=== PATIENT | male | born 1975 | race American Indian/Alaskan Native ===

== ENCOUNTER 2016-11-06 21:35 | Emergency (ER) | payer SELFPAY ==
--- NOTE | 2016-11-06 21:56 | C.PDOC ---
History Of Present Illness Patient is brought to the ED by ambulance complaining of about 2 episodes of vomiting prior to arrival. Patient notes he has been drinking alcohol and smoking marijuana today. Patient denies suicidal or homicidal ideation. Time Seen by Provider: 11/06/16 21:56 Chief Complaint (Nursing): Substance Abuse History Per: Patient History/Exam Limitations: intoxication Onset/Duration Of Symptoms: Hrs (prior to arrival) Current Symptoms Are (Timing): Still Present Suicide/Self Injury Attempted (Context): None Modifying Factor(s): Alcohol Severity: None Pain Scale Rating Of: 0 Recent travel outside of the [place]: No Additional History Per: EMS Past Medical History Reviewed: Historical Data, Nursing Documentation, Vital Signs Vital Signs: Last Vital Signs Temp 98.7 F 11/06/16 21:50 Pulse 110 H 11/06/16 21:50 Resp 20 11/06/16 21:50 BP 165/91 H 11/06/16 21:50 Pulse Ox 96 11/06/16 22:10 - Medical History PMH: HTN Family History: States: Unknown Family Hx - Social History Hx Alcohol Use: Yes Hx Substance Use: Yes - Immunization History Hx Tetanus Toxoid Vaccination: No Hx Influenza Vaccination: No Hx Pneumococcal Vaccination: No Review Of Systems Gastrointestinal: Positive for: Vomiting Psych: Negative for: Suicidal ideation, Other (homicidal ideation) Physical Exam - Physical Exam Appears: Non-toxic, No Acute Distress, Other (intoxicated) Skin: Warm, Dry Head: Atraumatic, Normacephalic Neck: Supple Chest: Symmetrical Cardiovascular: Rhythm Regular Respiratory: No Rales, No Rhonchi, No Wheezing Extremity: Bilateral: Atraumatic Neurological/Psych: Oriented x3 ED Course And Treatment - Laboratory Results Result Diagrams: 11/06/16 22:10 11/06/16 22:10 O2 Sat by Pulse Oximetry: 96 (room air) Pulse Ox Interpretation: Normal Progress Note: Plan: Labs Reevaluation Time: 00:03 Reassessment Condition: Improved Disposition Counseled Patient/Family Regarding: Studies Performed, Diagnosis, Need For Followup, Rx Given - Disposition Referrals: [facility] [Outside] Disposition: HOME/ ROUTINE Disposition Time: 21:56 Condition: FAIR Prescriptions: Ondansetron ODT [Zofran ODT] 1 odt PO BID PRN #6 odt PRN Reason: Nausea/Vomiting Instructions: Polysubstance Abuse (ED), Acute Nausea and Vomiting (ED) - Clinical Impression Clinical Impression: Drug abuse, Nausea & vomiting - Scribe Statement The provider has reviewed the documentation as recorded by the Scribe Toma Parisi Provider Attestation: All medical record entries made by the Scribe were at my direction and personally dictated by me. I have reviewed the chart and agree that the record accurately reflects my personal performance of the history, physical exam, medical decision making, and the department course for this patient. I have also personally directed, reviewed, and agree with the discharge instructions and disposition.
[2016-11-06 22:14] LABS: BASO % 0.8 % (0.0-2.0); EOS # 0.1 K/uL (0.0-0.7); EOS % 1.2 % (0.0-4.0); HEMATOCRIT 38.1 % (35.0-51.0); LYMPH # 1.7 K/uL (1.0-4.3); LYMPH % 28.6 % (20.0-40.0); MEAN CELL VOLUME 86.2 fL (80.0-94.0); MEAN CORPUSCULAR HEMOGLOBIN 29.2 pg (27.0-31.0); MEAN CORPUSCULAR HGB CONC 33.8 g/dL (33.0-37.0); MEAN PLATELET VOLUME 8.3 fL (7.2-11.7); MONO # 0.5 K/uL (0.0-0.8); MONO % 7.7 % (0.0-10.0); WHITE BLOOD COUNT 6.1 K/uL (4.8-10.8)
[2016-11-06 22:23] LABS: RBC URINE 2 /hpf (0-3); URINE BACTERIA RARE (<OCC); URINE BILIRUBIN NEGATIVE (NEGATIVE); URINE BLOOD NEGATIVE (NEGATIVE); URINE COLOR Yellow (YELLOW); URINE GLUCOSE (UA) NORMAL (Normal); URINE KETONE NEGATIVE (NEGATIVE); URINE LEUKOCYTE ESTERASE TRACE Leu/uL (Negative); URINE PROTEIN 2+ mg/dL (NEGATIVE); URINE UROBILINOGEN NORMAL mg/dL (0.2-1.0); WBC URINE 4 /hpf (0-5)
[2016-11-06 22:23] LABS: CHLORIDE 103 mmol/L (98-107); POTASSIUM 3.6 mmol/L (3.6-5.2); SODIUM 136 mmol/L (132-148)
[2016-11-06 22:25] LABS: BILIRUBIN,TOTAL 0.5 mg/dL (0.2-1.3); CARBON DIOXIDE 23 mmol/L (22-30); GFR AFRICAN-AMERICAN > 60
[2016-11-06 22:26] LABS: ALB/GLOB RATIO 1.5 (1.0-2.1); ALKALINE PHOSPHATASE 70 U/L (38-126); ALT/SGPT 33 U/L (21-72); AST/SGOT 35 U/L (17-59); BLOOD UREA NITROGEN 14 mg/dL (9-20); CALCIUM 8.2 mg/dl (8.6-10.4); GLUCOSE,RANDOM 108 mg/dL (75-110)
[2016-11-06 22:27] LABS: ALCOHOL SERUM < 10 mg/dl (0-10)
[2016-11-07 00:43] VITALS: BP 138/76; PULSE 87; RESP 16; TEMP 98.6; O2SAT 97
== END 2016-11-07 00:41 | disposition home or self-care (01) ==
LOC: C.ER 21:35
DX: F19.10 Other psychoactive substance abuse, uncomplicated (principal); R11.2 Nausea with vomiting, unspecified
CPT/HCPCS: 80053; 81001; 82948; 85025; 99285; G0480

== ENCOUNTER 2017-11-09 18:30 | Emergency (ER) | payer SELFPAY ==
[2017-11-09 18:43] VITALS: BP 163/69; PULSE 69; RESP 16; TEMP 98.6; O2SAT 98
--- NOTE | 2017-11-09 19:21 | C.PDOC ---
Chief Complaint (Nursing): Substance Abuse Past Medical History Vital Signs: Last Vital Signs Temp 98.6 F 11/09/17 18:40 Pulse 69 11/09/17 18:40 Resp 16 11/09/17 18:40 BP 163/69 H 11/09/17 18:40 Pulse Ox 98 11/09/17 19:21 - Medical History PMH: HTN Family History: States: Unknown Family Hx - Social History Hx Alcohol Use: Yes Hx Substance Use: Yes - Immunization History Hx Tetanus Toxoid Vaccination: No Hx Influenza Vaccination: No Hx Pneumococcal Vaccination: No ED Course And Treatment O2 Sat by Pulse Oximetry: 98 Disposition - Disposition Disposition: ELOPEMENT - ER ONLY Disposition Time: 19:21 Condition: STABLE Forms: [facility] (B[place]ladeshi) - Clinical Impression Clinical Impression: Drug abuse
== END 2017-11-09 19:21 | disposition left against medical advice (07) ==
LOC: C.ER 18:30
DX: F19.10 Other psychoactive substance abuse, uncomplicated (principal)